=== PATIENT | male | born 1990 | race Caucasian/White ===

== ENCOUNTER 2021-06-05 01:59 | Emergency (ER) | payer BC ==
[~2021-06-05] VITALS: Ht 172.7 cm; Wt 120.2 kg
[2021-06-05 02:49] VITALS: BP 148/96
--- NOTE | 2021-06-06 10:35 | EKG ---
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: : 1990 Requested By: Ness Pierce Order Number: [id number] MD: Fortino Perkins Measurements Intervals [place] Rate: 86 P: 20 W[place]: 179 QRS: 9 QRSD: 98 T: 5 QT: 369 QTc: 442 Interpretive Statements Sinus rhythm Baseline wander in lead(s) I,II,aVR,aVL,aVF,V1 No previous ECG available for comparison Electronically Signed On 06-06-2021 10:35:34 CDT by Fortino Perkins [email or web address] <ELECTRONICALLY SIGNED> By: Fortino Perkins MD, [facility] 06/06/21 1035 0207 Fortino Perkins MD, [facility] /EPI
== END 2021-06-05 02:50 | disposition home or self-care (01) ==
LOC: M.ERS 01:59
DX: M77.8 Other enthesopathies, not elsewhere classified (principal); Z88.1 Allergy status to other antibiotic agents